=== PATIENT | female | born 1930 | race Caucasian/White ===

== ENCOUNTER 2016-12-12 21:53 | Emergency (ER) | payer MEDICARE ==
[~2016-12-12] VITALS: Ht 154.9 cm; Wt 56.7 kg
[2016-12-12 21:56] VITALS: BP_SYST 120
--- NOTE | 2016-12-12 21:59 | NUR ---
Pt BIB EMS with c/o diarrhea x1 day. Pt was sent by facility for evaluation. A&Ox4, denies SOB or chestpain , denies N/V. Skin intact, with multiple bruises from blood drawn per pt. Will continue to monitor
--- NOTE | 2016-12-12 21:59 | NUR ---
Patient to ER bed 6 to gown for evaluation. Side rails up. Report given to JONATHAN CORDOBA.
--- NOTE | 2016-12-12 22:00 | NUR ---
MD Larsen at bedside examining pt
--- NOTE | 2016-12-12 22:40 | NUR ---
MD Larsen stated pt is not sepsis
[2016-12-12 22:47] LABS: EOSINOPHILS # (AUTO) 0.2 K/uL (0.0-0.4); HEMOGLOBIN 13.1 g/dL (12.0-16.0); LYMPHOCYTES # (AUTO) 1.2 K/uL (1.0-5.5); MEAN CORPUSCULAR HEMOGLOBIN 32 pg (27-31); MEAN CORPUSCULAR VOLUME 96 fL (79.0-98.0); RED BLOOD CELL COUNT(AUTO) 4.07 MIL/uL (4.2-6.2)
[2016-12-12] MEDS ORDERED: ASPI-1063 PO (22:47)
[2016-12-12] MEDS ORDERED: LISI-209 PO (22:48)
[2016-12-12] MEDS ORDERED: SIMV20TA6 PO (22:50)
[2016-12-12] MEDS ORDERED: DONE10TA44 PO (22:51)
[2016-12-12] MEDS ORDERED: CYAN100067 PO (22:51)
[2016-12-12] MEDS ORDERED: TYC3 PO (22:54)
[2016-12-12 22:55] LABS: BASOPHILS # (AUTO) 0.3 K/uL (0.0-0.2); BASOPHILS % (AUTO) 1.8 % (0.0-2.0); EOSINOPHILS % (AUTO) 1.1 % (0.0-4.0); LYMPHOCYTES % (AUTO) 7.6 % (20.5-51.5); MEAN CORPUSCULAR HGB CONC 34 % (32-36); MONOCYTES % (AUTO) 6.5 % (1.7-9.3); NEUTROPHILS # (AUTO) 12.9 K/uL (1.8-7.7); PLATELET COUNT (AUTO) 175 K/uL (130-430); RED CELL DISTRIBUTION WIDTH 12.8 % (9.0-15.0); WHITE BLOOD COUNT (AUTO) 15.6 K/uL (4.8-10.8)
[2016-12-12 22:57] LABS: ANION GAP 6 (5-15); CALCIUM 8.9 mg/dL (8.4-11.0); CHLORIDE 102 mmol/L (98-107); CREATININE 1.29 mg/dL (0.55-1.30); GLUCOSE 157 mg/dL (70-99); POTASSIUM 3.7 mmol/L (3.5-5.1); SODIUM SERUM 137 mmol/L (136-145); UREA NITROGEN, BLOOD 25 mg/dL (8-21)
[2016-12-12 23:13] LABS: ALANINE AMINOTRANSFERASE 37 U/L (12-78); ASPARTATE AMINOTRANSFERASE 35 U/L (10-37); FREE T4 (FREE THYROXINE) 1.1 ng/dL (0.6-1.6); TOTAL BILIRUBIN 0.4 mg/dL (0.0-1.0); TOTAL PROTEIN, SERUM 7.9 g/dL (6.4-8.3)
[2016-12-12 23:15] LABS: INR 0.9 (0.8-1.2); PROTHROMBIN TIME 10.1 SECS (9.5-12.5)
--- NOTE | 2016-12-12 23:15 | NUR ---
Pt in bed, VSS, no distress noted. Will continue to monitor
[2016-12-12 23:21] LABS: ALCOHOL, BLOOD < 3 mg/dL (<10)
[2016-12-12 23:53] LABS: BILIRUBIN,URINE NEGATIVE (NEGATIVE); CLARITY/URINE SL HAZY (CLEAR); COLOR,URINE YELLOW (YELLOW); GLUCOSE,URINE NEGATIVE (NEGATIVE); KETONES,URINE TRACE (NEGATIVE); LEUKOCYTE ESTERASE ,URINE TRACE (NEGATIVE); NITRITE, URINE NEGATIVE (NEGATIVE); PH,URINE 5.5 (5.0-8.0); PROTEIN URINE 1+ (NEGATIVE); UROBILINOGEN,URINE 0.2 (0.2-1.0)
[2016-12-12 23:55] LABS: BLOOD, URINE TRACE (NEGATIVE)
[2016-12-13 00:02] LABS: METHAMPHETAMINES SCREEN,URINE POSITIVE (NEG <=500)
[2016-12-13 00:03] LABS: BARBITURATE, URINE NEGATIVE (NEG <=200); BENZODIAZEPINE, URINE NEGATIVE (NEG <=150); CANNABINOID, URINE NEGATIVE (NEG <=50); COCAINE, URINE NEGATIVE (NEG <=150); OPIATE, URINE NEGATIVE (NEG <=100); PHENCYCLIDINE SCREEN,URINE NEGATIVE (NEG <=25); UR TRICYCLIC ANTIDEPRESSANTS NEGATIVE (NEG <=300); URINE AMPHETAMINE NEGATIVE (NEG <=500); URINE METHADONE NEGATIVE (NEG <=200); URINE OXYCODONE SCREEN NEGATIVE (NEG <=100); URINE PROPOXYPHENE SCREEN NEGATIVE (NEG <=300)
[2016-12-13 00:08] LABS: BACTERIA,URINE FEW /HPF (None Seen); RBC,URINE 0-3 /HPF (0-3); WBC,URINE 50-80 /HPF (0-3)
[2016-12-13 00:10] LABS: FINE GRANULAR CASTS,URINE 0-10 /LPF (None Seen); MUCUS,URINE 1+ /LPF (None Seen)
[2016-12-13] MEDS ORDERED: NS 500 ML IV ONE (00:30)
[2016-12-13] MEDS ORDERED: LEVOFLOXACIN 500 MG/D5W 100 ML IV ONE (00:30)
--- NOTE | 2016-12-13 00:30 | NUR ---
Pt appeared resting comfortably in bed, no sign of distress
[2016-12-13 02:00] VITALS: BP_SYST 110
--- NOTE | 2016-12-13 02:00 | NUR ---
Patient given written and verbal discharge instructions and verbalizes understanding. ER MD Larsen discussed with patient the results and treatment provided. Given copies of tests performed in ER. Patient in stable condition. ID arm band removed. IV catheter removed intact and dressing applied, no active bleeding. Rx of cipro given. Patient educated on pain management and to follow up with PMD. Pain Scale 0/10 Opportunity for questions provided and answered.
== END 2016-12-13 02:00 | disposition home or self-care (01) ==
LOC: SED 21:53
DX: N39.0 Urinary tract infection, site not specified (principal); R19.7 Diarrhea, unspecified; I95.9 Hypotension, unspecified; E11.29 Type 2 diabetes mellitus with other diabetic kidney complication; N28.9 Disorder of kidney and ureter, unspecified; Z88.2 Allergy status to sulfonamides
CPT/HCPCS: 36415; 71010; 74000; 80053; 80307; 81000; 82140; 83605; 83880; 84439; 84484; 85025; 85610; 87040; 87086; 93005; 96365; 99285; G0482; J1956; J7040; 87186-TC

== ENCOUNTER 2017-10-20 10:45 | Emergency (ER) | payer MEDICARE ==
[~2017-10-20] VITALS: Ht 170.2 cm; Wt 40.8 kg
[~2017-10-20 10:45] MED LIST: ASPI-1063 PO; CYAN100067 PO; DONE10TA44 PO; LISI-209 PO; SIMV20TA6 PO; TYC3 PO
[2017-10-20 10:55] VITALS: BP_SYST 110
--- NOTE | 2017-10-20 10:55 | NUR ---
BROUGHT IN BY [facility] FROM [facility], PLACED IN BED #5 AND REPORT GIVEN TO THA/SAQIB
--- NOTE | 2017-10-20 11:07 | NUR ---
Pt is awake and alert, arrived to ER by ambulance. Pt came from [facility]. Pt stated that she fell while getting out of bed this morining. The fall was unwitnessed. Bruise to Right cheek bone noted. Right knee skin tear and Left oh skin tear approx 2 in in length. Pt denies pain. VSS. No other complaints or injuries noted at this time.
--- NOTE | 2017-10-20 11:30 | NUR ---
ER at bedside examining patient.
[2017-10-20 12:10] LABS: BASOPHILS % (AUTO) 0.3 % (0.0-2.0); EOSINOPHILS % (AUTO) 0.1 % (0.0-4.0); HEMATOCRIT 41.6 % (36-48); HEMOGLOBIN 13.5 g/dL (12.0-16.0); LYMPHOCYTES # (AUTO) 0.4 K/uL (1.0-5.5); MEAN CORPUSCULAR HEMOGLOBIN 30 pg (27-31); MEAN CORPUSCULAR HGB CONC 32 % (32-36); MEAN CORPUSCULAR VOLUME 93 fL (79.0-98.0); MONOCYTES # (AUTO) 0.5 K/uL (0.0-1.0); NEUTROPHILS # (AUTO) 5.5 K/uL (1.8-7.7); NEUTROPHILS % (AUTO) 85.6 % (40.0-70.0); PLATELET COUNT (AUTO) 140 K/uL (130-430); RED BLOOD CELL COUNT(AUTO) 4.46 MIL/uL (4.2-6.2); RED CELL DISTRIBUTION WIDTH 12.6 % (9.0-15.0); WHITE BLOOD COUNT (AUTO) 6.4 K/uL (4.8-10.8)
[2017-10-20 12:17] LABS: ANION GAP 5 (5-15); CALCIUM 9.3 mg/dL (8.4-11.0); CHLORIDE 97 mmol/L (98-107); CREATININE 1.18 mg/dL (0.55-1.30); GLUCOSE 164 mg/dL (70-99); POTASSIUM 3.9 mmol/L (3.5-5.1); SODIUM SERUM 130 mmol/L (136-145); UREA NITROGEN, BLOOD 19 mg/dL (8-21)
--- NOTE | 2017-10-20 12:20 | NUR ---
PT OFF UNIT FOR CT.
[2017-10-20 12:22] LABS: ALANINE AMINOTRANSFERASE 24 U/L (12-78); ASPARTATE AMINOTRANSFERASE 26 U/L (10-37); TOTAL BILIRUBIN 0.4 mg/dL (0.0-1.0)
[2017-10-20 13:27] LABS: BILIRUBIN,URINE NEGATIVE (NEGATIVE); BLOOD, URINE 2+ (NEGATIVE); CLARITY/URINE CLEAR (CLEAR); COLOR,URINE YELLOW (YELLOW); GLUCOSE,URINE NEGATIVE (NEGATIVE); KETONES,URINE NEGATIVE (NEGATIVE); LEUKOCYTE ESTERASE ,URINE NEGATIVE (NEGATIVE); NITRITE, URINE POSITIVE (NEGATIVE); PROTEIN URINE 2+ (NEGATIVE); UROBILINOGEN,URINE 0.2 (0.2-1.0)
[2017-10-20 13:37] LABS: BACTERIA,URINE MANY /HPF (None Seen); MUCUS,URINE 1+ /LPF (None Seen)
--- NOTE | 2017-10-20 14:00 | NUR ---
Pt resting in bed with son and daughter in-law at bedside. Vital signs stable
[2017-10-20] MEDS ORDERED: cefTRIAXone 1 GM VIAL IM ONE (15:30)
[2017-10-20] MEDS ORDERED: BACITRACIN 1 GM OINT TP ONE (15:34)
--- NOTE | 2017-10-20 16:16 | NUR ---
Pt's son Pradeep dropped off new clothing items since pt pants and underware were soilder upon arrival to hospital. Pradeep was given pt's clothing that she arrived with to take home. Pradeep cell # .
--- NOTE | 2017-10-20 16:56 | NUR ---
Pt IV antibiotics infused. When removing IV tubing Pt was observed to be wrapped in IV tubbing. IV site was noted to be swollen and slightly red. Pt was asked if there was any pain in that area, Pt denied any pain in her left AC. IV was removed and warm compress was applied to the area with pressure. Will continue to monitor.
--- NOTE | 2017-10-20 17:35 | NUR ---
IV placement on the Right AC #[id number]. Patent, no signs of infiltration. First attempt for placement. S.L.
--- NOTE | 2017-10-20 17:39 | NUR ---
Report given to Dalia at [facility]. MD Acevedo at [facility].
--- NOTE | 2017-10-20 18:39 | NUR ---
Patient to be transferred to [facility]. Is being transferred due to higher level of care. Receiving facility has accepting physician and available space. ER physician has signed transfer form. Patient or responsible democrat has agreed to transfer and signed form. Patient belongings inventoried and will be sent with patient. Copy of nursing notes, lab reports, EKG, Physicians Orders and X-rays to be sent with patient. Report called to Dalia at receiving facility. Receiving physician is [facility]. EMS ambulance service has been called for transfer.
[2017-10-20 19:10] VITALS: BP_SYST 110
== END 2017-10-20 19:10 | disposition short-term general hospital (02) ==
LOC: SED 10:45
DX: S81.012A Laceration without foreign body, left knee, initial encounter (principal); S81.011A Laceration without foreign body, right knee, initial encounter; N39.0 Urinary tract infection, site not specified; E11.649 Type 2 diabetes mellitus with hypoglycemia without coma; I95.9 Hypotension, unspecified; E11.29 Type 2 diabetes mellitus with other diabetic kidney complication; N28.9 Disorder of kidney and ureter, unspecified; Z88.2 Allergy status to sulfonamides; Z79.899 Other long term (current) drug therapy; W10.9XXA Fall (on) (from) unspecified stairs and steps, initial encounter; Y93.01 Activity, walking, marching and hiking; Y92.89 Other specified places as the place of occurrence of the external cause; Y99.8 Other external cause status
CPT/HCPCS: 36415; 70450; 71045; 80053; 81000; 82962; 84484; 85025; 87086; 93005; 96365; 96366; 99285; J0696; J7030; J7060